=== PATIENT | female | born 1990 | race Caucasian/White ===

== ENCOUNTER 2019-09-12 12:13 | Outpatient (CLI) | payer MEDICAID ==
[2019-09-12 13:33] LABS: Bacteria,Urine 1+ /HPF (Negative); Bilirubin,Urine NEG (Negative); Blood,Urine NEG (Negative); Color,Urine Yellow (Yellow); Mucus,Urine FEW /HPF; Urobilinogen,Urine < 2.0 mg/dL (<2.0)
[2019-09-12 13:35] LABS: Hemoglobin 12.7 gm/dl (10.1-14.3); Mean Corpuscular HGB Conc 33 % (30-34); Mean Corpuscular Volume 71 fl (79-97); Platelet Count 167 K/mm3 (140-440); Red Cell Distribution Width 17.7 % (13.2-15.2)
[2019-09-12 13:58] LABS: Alanine Aminotransferase 20 units/L (7-56); Uric Acid 7.8 mg/dL (3.5-7.6)
[2019-09-12 15:54] VITALS: BP 141/90
--- NOTE | 2019-09-12 17:28 | Event Note ---
Date: 09/12/19 29yo G 4 P 3 0 0 3 @ 38 weeks 4 days here with c/o contractions. She reports +FMs but denies VB or LOF. She was seen at the office yesterday, had elevated BPs, was started on Labetalol 100mg PO BID and advised to f/u at the hospital for PIH workup. She did not come to the hospital, filled her prescription this afternoon and just took the Labetalol 1 hr prior to coming to the hospital. She denies headache, visual disturbances or RUQ pain. SBPs 137-158, DBPs 89-93 PIH labs done: Plt 167, UA 7.8, AST 17, ALT 20, LDH 205, UA 100 mg/dl FHR category I I recommended IOL but pt declined stating "I want to deliver my baby naturally". I consulted Dr. Candelario and he recommended 23-hr observation and 24hr urine collection. Pt again declined stating : I can collect the urine at home. I have done it before". Dr. Candelario was informed and order received to discharge patient home per pt's request with instructions to do the 24hr urine collection and f/u at the clinic on 09/15/19. Patient instructed on 24hr urine collection, to drop it off at the hospital when completed, check her BPs at home, f/u at the hospital if persistently elevated or otherwise f/u at the clinic in 3 days. I also instructed her to take Labetalol 200mg (2 tablets) BID. Reviewed signs and symptoms of PIH.
== END 2019-09-12 17:35 | disposition home or self-care (01) ==
LOC: TRG 12:13 → APU 12:17 → TRG 17:35
PROVIDERS: ATTEND Obstetrics & Gynecology
DX: O47.1 False labor at or after 37 completed weeks of gestation (principal); Z3A.38 38 weeks gestation of pregnancy
CPT/HCPCS: 36415; 59025; 81001; 82565; 83615; 84450; 84460; 84550; 85027; 86850; 86900; 86901